=== PATIENT | female | born 1965 | race Hispanic/Latino ===

== ENCOUNTER 2016-05-08 10:04 | Outpatient (CLI) | payer MEDICARE, MEDICAID ==
[2016-05-08 11:52] LABS: ALT (SGPT) 12 U/L (0-55); AST (SGOT) 15 U/L (5-34); Alkaline Phosphatase 119 U/L (40-150); Anion Gap 15 mmol/L (10-20); BUN (Urea Nitrogen) 42 mg/dL (7.0-18.7); Bilirubin, Total 0.4 mg/dL (0.2-1.2); Calc. Creatinine Clearance 0 mL/min (70-130); Calcium 9.5 mg/dL (7.8-10.44); Carbon Dioxide 19 mmol/L (22-29); Chloride 107 mmol/L (98-107); Estimated GFR-MDRD 28; Globulin 4.4 g/dL (2.4-3.5); LDL Cholesterol, Calculated 175 mg/dL; Protein, Total 7.9 g/dL (6.0-8.3)
[2016-05-08 19:42] LABS: Microalbumin Urine Greater than 200.0 mg/dL (0.5-50.0)
== END 2016-05-08 10:05 | disposition home or self-care (01) ==
LOC: NAV LAB 10:04
PROVIDERS: ATTEND Specialist
DX: E78.5 Hyperlipidemia, unspecified (principal); E11.21 Type 2 diabetes mellitus with diabetic nephropathy; I10 Essential (primary) hypertension; K21.9 Gastro-esophageal reflux disease without esophagitis
CPT/HCPCS: 36415; 80053; 80061; 82043; 84443

== ENCOUNTER 2016-06-26 15:26 | Outpatient (CLI) | payer MEDICARE, MEDICAID ==
[2016-06-26 15:40] LABS: Hemoglobin 10.2 g/dL (12.0-16.0)
[2016-06-26 16:09] LABS: Anion Gap 15 mmol/L (10-20); BUN (Urea Nitrogen) 39 mg/dL (9.8-20.1); Calc. Creatinine Clearance 0 mL/min (70-130); Calcium 8.9 mg/dL (7.8-10.44); Carbon Dioxide 19 mmol/L (22-29); Chloride 110 mmol/L (98-107); Estimated GFR-MDRD 28; Glucose 164 mg/dL (70-105); Sodium 139 mmol/L (136-145)
--- NOTE | 2016-06-26 18:04 | ULT ---
RENAL SONOGRAM 06/26/16 HISTORY: Stage IV chronic kidney disease, hypertension, diabetes mellitus. FINDINGS: The right kidney demonstrates a normal sonographic appearance without evidence of a renal mass, sawyer l calculus, or hydronephrosis. The right kidney measures 10.1 cm x 4.2 cm. The left kidney measures 10.9 cm x 4.7 cm. There is a 0.5 cm tiny anechoic structure seen within the superior pole of the right kidney which statistically likely represents a tiny cyst. There is no hy dronephrosis, renal calculi or perinephric fluid collection seen on the left. The prevoid urinary bladder volume is 29 mL with postvoid urinary bladder volume of 3 mm. The urinar y bladder is incompletely distended on this examination, but is otherwise grossly normal in appearan ce. IMPRESSION: Tiny left renal cyst. Kidneys otherwise demonstrate a normal sonographic appearance bilaterally with out evidence of hydronephrosis. POS: [facility]
== END 2016-06-26 15:27 | disposition home or self-care (01) ==
LOC: NAV ULT 15:26
PROVIDERS: ATTEND Internal Medicine Nephrology
DX: I12.9 Hypertensive chronic kidney disease with stage 1 through stage 4 chronic kidney disease, or unspecified chronic kidney disease (principal); N18.4 Chronic kidney disease, stage 4 (severe); E11.00 Type 2 diabetes mellitus with hyperosmolarity without nonketotic hyperglycemic-hyperosmolar coma (NKHHC)
CPT/HCPCS: 36415; 76770; 80048; 82306; 83970; 85014; 85018

== ENCOUNTER 2016-07-13 05:45 | Emergency (ER) | payer MEDICARE, MEDICAID ==
[2016-07-13] MEDS ORDERED: Adacel (T-DAP) 0.5 ML VIAL ONE (06:27)
[2016-07-13] MEDS ORDERED: Penicillin V Potassium 250 MG TAB ONE (06:27)
== END 2016-07-13 06:48 | disposition home or self-care (01) ==
LOC: NAV ERS 05:45
DX: S91.152A Open bite of left great toe without damage to nail, initial encounter (principal); S91.351A Open bite, right foot, initial encounter; E11.40 Type 2 diabetes mellitus with diabetic neuropathy, unspecified; I10 Essential (primary) hypertension; W53.11XA Bitten by rat, initial encounter
CPT/HCPCS: 90471; 90715

== ENCOUNTER 2016-07-28 16:49 | Outpatient (CLI) | payer MEDICARE, OTHER ==
--- NOTE | 2016-07-28 19:59 | RAD ---
LEFT GREAT TOE 2 VIEWS: Date: 07/28/16 HISTORY: 51-year-old female with history of infection for 2 weeks. FINDINGS: There is some soft tissue swelling of the great toe. There does appear to be some soft tissue irregu larity medially at the distal toe. No bony erosive or destructive changes. No fracture or dislocatio n. IMPRESSION: Soft tissue changes. Mild arthrosis. No plain film evidence for osteomyelitis. If that remains a cli nical concern, follow-up nonemergent MRI study might be considered. POS: [facility]
== END 2016-07-28 16:50 | disposition home or self-care (01) ==
LOC: NAV RAD 16:49
PROVIDERS: ATTEND Nurse Practitioner Family
DX: E11.69 Type 2 diabetes mellitus with other specified complication (principal); E08.40 Diabetes mellitus due to underlying condition with diabetic neuropathy, unspecified; L08.9 Local infection of the skin and subcutaneous tissue, unspecified; W53.11XD Bitten by rat, subsequent encounter

== ENCOUNTER 2016-09-11 16:56 | Emergency (ER) | payer MEDICARE, OTHER ==
[2016-09-11] MEDS ORDERED: Acetaminophen 325 MG TAB ONE (17:52)
[2016-09-11] MEDS ORDERED: Ibuprofen 200 MG TAB ONE (17:52)
[2016-09-11 17:54] LABS: Mean Corpuscular HGB CONC 33.4 g/dL (32.0-36.0); Mean Corpuscular Hemoglobin 26.6 pg (27.0-31.0); Mean Corpuscular Volume 79.7 fl (81.0-99.0); Mean Platelet Volume 6.3 fL (7.4-10.4); Platelet Count 339 thou/uL (130-400); RBC Distribution Width 11.4 % (11.5-14.5); Red Blood Cell (RBC) Count 3.39 mill/uL (4.20-5.40)
[2016-09-11 18:05] LABS: ALT (SGPT) 11 U/L (8-55); AST (SGOT) 14 U/L (5-34); Albumin 3.3 g/dL (3.5-5.0); Alkaline Phosphatase 80 U/L (40-150); Anion Gap 15 mmol/L (10-20); BUN (Urea Nitrogen) 58 mg/dL (9.8-20.1); Bilirubin, Total 0.2 mg/dL (0.2-1.2); CRP (Inflammatory) 3.52 mg/dL (= or < 0.5); Calc. Creatinine Clearance 0 mL/min (70-130); Calcium 8.8 mg/dL (7.8-10.44); Carbon Dioxide 18 mmol/L (22-29); Chloride 108 mmol/L (98-107); Estimated GFR-MDRD 22; Globulin 4.3 g/dL (2.4-3.5); Glucose 168 mg/dL (70-105); Potassium 5.4 mmol/L (3.5-5.1); Protein, Total 7.6 g/dL (6.0-8.3); Sodium 136 mmol/L (136-145)
[2016-09-11 18:32] LABS: Band 1 % (5-11); Eosinophils 2 % (0-10); Lymphocytes 23 % (21-51); MDiff Complete? YES; Microcytosis SLIGHT = 6-15 cells (100X) (0-5/hpf); Monocytes 3 % (0-10); Neutrophil 71 % (42-75); Ovalocytes SLIGHT = 2-5 cells (100X) (0-1/hpf)
[2016-09-11] MEDS ORDERED: Sodium Chloride 0.9% 0 ML ONE ×2 (18:45→18:47)
[2016-09-11] MEDS ORDERED: Clindamycin 300 MG/2 ML VIAL ONE (18:45)
[2016-09-11] MEDS ORDERED: Sodium Chloride 0.9% 1,000 ML ONE ×2 (18:47→18:48)
[2016-09-11] MEDS ORDERED: Sodium Chloride 0.9% 100 ML ONE (18:47)
[2016-09-11] MEDS ORDERED: traMADol HCl 50 MG TAB ONE (18:48)
--- NOTE | 2016-09-11 20:05 | RAD ---
RIGHT FOOT THREE VIEW 09/11/16 HISTORY: Diabetic and stepped on a nail two days ago. Removed the staple, now swelling to the foot and ankle. COMPARISON: None. FINDINGS: No acute fracture or malalignment. No radiopaque foreign object. Vascular calcifications of the expected location of the posterior tibial tendon. There is an os yulia culare. There is moderate dorsal and plantar edema of the midfoot extending to the forefoot. Moderate sized plantar and small dorsal calcaneal spur. IMPRESSION: Midfoot and forefoot edema without fracture or radiopaque foreign object. POS: [facility]
== END 2016-09-11 19:55 | disposition short-term general hospital (02) ==
LOC: NAV ERS 16:56
DX: S91.331A Puncture wound without foreign body, right foot, initial encounter (principal); L03.115 Cellulitis of right lower limb; I12.9 Hypertensive chronic kidney disease with stage 1 through stage 4 chronic kidney disease, or unspecified chronic kidney disease; E11.22 Type 2 diabetes mellitus with diabetic chronic kidney disease; N18.9 Chronic kidney disease, unspecified; N17.9 Acute kidney failure, unspecified; E11.40 Type 2 diabetes mellitus with diabetic neuropathy, unspecified; Z79.4 Long term (current) use of insulin; Z79.899 Other long term (current) drug therapy; W45.8XXA Other foreign body or object entering through skin, initial encounter
CPT/HCPCS: 36415; 80053; 83605; 85025; 85652; 86140; 87040; 96365; J3490; J7050

== ENCOUNTER 2016-10-24 15:42 | Outpatient (CLI) | payer MEDICARE, OTHER ==
[2016-10-24 17:35] LABS: Anion Gap 15 mmol/L (10-20); BUN (Urea Nitrogen) 41 mg/dL (9.8-20.1); Calc. Creatinine Clearance 0 mL/min (70-130); Calcium 9.4 mg/dL (7.8-10.44); Carbon Dioxide 21 mmol/L (22-29); Chloride 106 mmol/L (98-107); Estimated GFR-MDRD 26; Glucose 161 mg/dL (70-105); Potassium 4.4 mmol/L (3.5-5.1); Sodium 138 mmol/L (136-145)
== END 2016-10-24 15:43 | disposition home or self-care (01) ==
LOC: NAV LAB 15:42
PROVIDERS: ATTEND Internal Medicine
DX: E11.65 Type 2 diabetes mellitus with hyperglycemia (principal)
CPT/HCPCS: 36415; 80048; 84681

== ENCOUNTER 2017-02-10 15:46 | Emergency (ER) | payer MEDICARE, OTHER | END 2017-02-10 16:44 | disposition home or self-care (01) | LOC: NAV ERS 15:46 | DX: J02.9 Acute pharyngitis, unspecified (principal); I10 Essential (primary) hypertension; E11.9 Type 2 diabetes mellitus without complications; G62.9 Polyneuropathy, unspecified; Z79.4 Long term (current) use of insulin; Z79.899 Other long term (current) drug therapy | CPT/HCPCS: 87081; 87430; 99283 ==

== ENCOUNTER 2017-04-07 15:25 | Emergency (ER) | payer MEDICARE, MEDICAID ==
--- NOTE | 2017-04-07 16:27 | RAD ---
CHEST TWO VIEWS: History: Cough. FINDINGS: The cardiac silhouette and pulmonary vasculature are unremarkable. Mediastinum is midline. There is n o confluent airspace consolidation, pneumothorax or pleural fluid apparent. IMPRESSION: No active cardiopulmonary abnormalities are demonstrated. POS: [facility]
== END 2017-04-07 17:41 | disposition home or self-care (01) ==
LOC: NAV ERS 15:25
DX: J11.1 Influenza due to unidentified influenza virus with other respiratory manifestations (principal); E11.40 Type 2 diabetes mellitus with diabetic neuropathy, unspecified; I10 Essential (primary) hypertension; Z79.4 Long term (current) use of insulin; Z79.899 Other long term (current) drug therapy
CPT/HCPCS: 71046

== ENCOUNTER 2018-04-16 20:59 | Emergency (ER) | payer MEDICARE, OTHER ==
[2018-04-16] MEDS ORDERED: HYDROcodone/Acetaminophen 5/325 mg Tablet ONE (21:42)
--- NOTE | 2018-04-16 21:58 | RAD ---
AP ABDOMINAL RADIOGRAPH 04/16/18 HISTORY: Abdominal pain. No bowel movement or ten days. FINDINGS: There is a small to moderate amount of retained material seen throughout the colon. Bowel gas p attern is otherwise nonspecific. Surgical clips overlie the right upper quadrant. there suggestion of a surgical clip overlying the left lateral aspect of the L5 vertebral body with surgical clips overl jaime the right upper quadrant. IMPRESSION: Small to moderate amount of retained fecal material suggesting constipation. Bowel gas pattern is oth erwise nonspecific. POS: [facility]
== END 2018-04-16 22:15 | disposition home or self-care (01) ==
LOC: NAV ERS 20:59
DX: K56.41 Fecal impaction (principal); E11.40 Type 2 diabetes mellitus with diabetic neuropathy, unspecified; I10 Essential (primary) hypertension; Z79.4 Long term (current) use of insulin; Z79.899 Other long term (current) drug therapy
CPT/HCPCS: 74018

== ENCOUNTER 2019-05-01 12:42 | Emergency (ER) | payer MEDICARE, MEDICAID ==
[2019-05-01 14:43] LABS: #Eosinphils 0.2 thou/uL (0.0-0.7); #Lymphocytes 1.2 thou/uL (1.20-3.40); #Monocytes 0.2 thou/uL (0.11-0.59); #Neutrophils 4.5 thou/uL (1.40-6.50); %Basophils 0.7 % (0.0-1.0); %Eosinophils 2.7 % (0.0-10.0); %Lymphocytes 19.4 % (21.0-51.0); %Monocytes 3.7 % (0.0-10.0); %Neutrophils 73.5 % (42.0-75.0); Hemoglobin 9.1 g/dL (12.0-16.0); Mean Corpuscular HGB CONC 31.7 g/dL (32.0-36.0); Mean Corpuscular Hemoglobin 28.9 pg (27.0-31.0); Mean Corpuscular Volume 91.2 fL (78.0-98.0); Mean Platelet Volume 6.4 fL (7.4-10.4); Platelet Count 197 thou/uL (130-400); RBC Distribution Width 14.2 % (11.5-14.5); Red Blood Cell (RBC) Count 3.15 mill/uL (4.20-5.40); White Blood Cell (WBC) Count 6.1 thou/uL (4.8-10.8)
[2019-05-01 15:04] LABS: Anion Gap 19 mmol/L (10-20); BUN (Urea Nitrogen) 39 mg/dL (9.8-20.1); Calc. Creatinine Clearance 0 mL/min (70-130); Calcium 9.2 mg/dL (7.8-10.44); Carbon Dioxide 27 mmol/L (22-29); Chloride 98 mmol/L (98-107); Estimated GFR-MDRD 6; Glucose 156 mg/dL (70-105); Potassium 4.9 mmol/L (3.5-5.1); Sodium 139 mmol/L (136-145)
== END 2019-05-01 16:32 | disposition home or self-care (01) ==
LOC: NAV ERS 12:42
DX: G47.01 Insomnia due to medical condition (principal); E11.40 Type 2 diabetes mellitus with diabetic neuropathy, unspecified; D64.89 Other specified anemias; N18.9 Chronic kidney disease, unspecified; F41.9 Anxiety disorder, unspecified; F32.9 Major depressive disorder, single episode, unspecified; I10 Essential (primary) hypertension; Z99.2 Dependence on renal dialysis; Z79.4 Long term (current) use of insulin; Z79.891 Long term (current) use of opiate analgesic; Z79.899 Other long term (current) drug therapy
CPT/HCPCS: 36416; 80048; 82607; 82746; 84443; 85025; 99284

== ENCOUNTER 2020-01-03 14:48 | Outpatient (CLI) | payer MEDICARE, OTHER ==
--- NOTE | 2020-01-03 15:09 | RAD ---
PA AND LATERAL VIEWS OF THE CHEST: 01/03/20 HISTORY: Cough. FINDINGS/IMPRESSION: Comparison made with exam of 04/08/18. The heart size is borderline. There are bilateral pleural effusions with adjacent opacities, right gr eater than left. No pneumothoraces are seen. POS: [facility]
== END 2020-01-03 14:49 | disposition home or self-care (01) ==
LOC: NAV RAD 14:48
PROVIDERS: ATTEND Internal Medicine
DX: R05 Cough (principal); J90 Pleural effusion, not elsewhere classified; R91.8 Other nonspecific abnormal finding of lung field
CPT/HCPCS: 71046

== ENCOUNTER 2020-01-12 12:52 | Outpatient (CLI) | payer MEDICARE, OTHER ==
--- NOTE | 2020-01-12 13:49 | CT ---
CT THORAX NONCONTRAST: DATE: 01/12/2020 HISTORY: 54-year-old female with chronic cough COMPARISON: none FINDINGS: Right-sided pleural effusion occupies approximately a third of the right hemithoracic cavity volume. Left pleural effusion occupies approximately 5-10% of left hemithoracic cavity volume. Patchy, streaky, and consolidative changes involving anterior base of right lower lobe and right midd le lobe, with air bronchograms. Trachea and bilateral mainstem bronchi are patent and clear. No pneumothorax. Minimal, hazy groundglass faint changes sac throughout the visualized lung herrmann are nonspecific, bu t may represent minimal interstitial edema. No cardiomegaly, pericardial effusion, or thoracic aortic aneurysm. Free fluid around the right lobe of the liver. Large slightly irregular shape region of slightly low -attenuation in the spleen. IMPRESSION: 1) Small to moderate-sized right pleural effusion and small left pleural effusion. 2) streaky and patchy airspace densities in right middle lobe and anterior base of right lower lobe: Atelectasis versus pneumonia. 3) ascites: Free fluid around right lobe of liver. 4) large splenic lesion. Unknown etiology and significance. Evaluation limited without IV contrast. 5) subtle, faint groundglass changes diffusely bilaterally may or may not represent minimal pulmonary interstitial edema
== END 2020-01-12 12:53 | disposition home or self-care (01) ==
LOC: NAV CT 12:52
PROVIDERS: ATTEND Internal Medicine
DX: J90 Pleural effusion, not elsewhere classified (principal); R05 Cough; R91.8 Other nonspecific abnormal finding of lung field; R18.8 Other ascites; D73.89 Other diseases of spleen
CPT/HCPCS: 71250

== ENCOUNTER 2020-09-05 12:40 | Emergency (ER) | payer MEDICARE, OTHER ==
[2020-09-05] MEDS ORDERED: Dextrose 50% Abboject 50 ML SYRINGE ONE (14:34)
[2020-09-05 14:37] LABS: #Basophils 0.1 thou/uL (0.0-0.2); #Eosinphils 0.2 thou/uL (0.0-0.7); #Monocytes 0.4 thou/uL (0.11-0.59); #Neutrophils 3.6 thou/uL (1.40-6.50); %Eosinophils 3.8 % (0.0-10.0); %Lymphocytes 18.4 % (21.0-51.0); %Monocytes 7.9 % (0.0-10.0); %Neutrophils 68.8 % (42.0-75.0); Hemoglobin 9.9 g/dL (12.0-16.0); Mean Corpuscular HGB CONC 28.6 g/dL (32.0-36.0); Mean Corpuscular Hemoglobin 28.7 pg (27.0-31.0); Mean Platelet Volume 6.1 fL (7.4-10.4); Platelet Count 209 thou/uL (130-400); RBC Distribution Width 13.2 % (11.5-14.5); Red Blood Cell (RBC) Count 3.44 mill/uL (4.20-5.40); White Blood Cell (WBC) Count 5.2 thou/uL (4.8-10.8)
[2020-09-05 14:42] LABS: INR-International Normal Ratio 1.1; PTT 33.7 sec (22.9-36.1); Prothrombin Time 14.7 sec (12.0-14.7)
[2020-09-05 14:48] LABS: ALT (SGPT) 9 U/L (8-55); AST (SGOT) 17 U/L (5-34); Albumin 3.1 g/dL (3.5-5.0); Alkaline Phosphatase 352 U/L (40-110); Anion Gap 14 mmol/L (10-20); BUN (Urea Nitrogen) 9 mg/dL (9.8-20.1); Bilirubin, Total 1.6 mg/dL (0.2-1.2); Calc. Creatinine Clearance 0 mL/min (70-130); Calcium 8.5 mg/dL (7.8-10.44); Carbon Dioxide 32 mmol/L (22-29); Chloride 97 mmol/L (98-107); Globulin 5.3 g/dL (2.4-3.5); Glucose 61 mg/dL (70-105); Potassium 3.1 mmol/L (3.5-5.1); Protein, Total 8.4 g/dL (6.0-8.3); Sodium 140 mmol/L (136-145)
[2020-09-05] MEDS ORDERED: Sodium Chloride 0.9% 100 ML ONE (15:25)
[2020-09-05] MEDS ORDERED: Piperacillin/Tazobactam 4.5 GM VIAL ONE (15:25)
== END 2020-09-05 17:22 | disposition short-term general hospital (02) ==
LOC: NAV ERS 12:40
DX: E11.649 Type 2 diabetes mellitus with hypoglycemia without coma (principal); E11.40 Type 2 diabetes mellitus with diabetic neuropathy, unspecified; J90 Pleural effusion, not elsewhere classified; E11.22 Type 2 diabetes mellitus with diabetic chronic kidney disease; N18.6 End stage renal disease; E11.51 Type 2 diabetes mellitus with diabetic peripheral angiopathy without gangrene; Z79.4 Long term (current) use of insulin; Z79.899 Other long term (current) drug therapy
CPT/HCPCS: 36416; 71045; 80053; 83605; 83880; 84484; 85025; 85610; 85730; 93005; 96365; 96375; J2543; J3490